=== PATIENT | female | born 1950 | race Caucasian/White ===

== ENCOUNTER → 2020-11-20 | Outpatient (CLI) | payer MEDICARE ==
[~2020-11-20] MED LIST: MULT-449 PO; OMNIPAQUE 350 MG/ML, 75ML BOTTLE ONE
== END | disposition home or self-care (01) ==
LOC: RAD 15:35
PROVIDERS: ATTEND Obstetrics & Gynecology
DX: R91.1 Solitary pulmonary nodule (principal); K76.89 Other specified diseases of liver; R19.09 Other intra-abdominal and pelvic swelling, mass and lump; R93.89 Abnormal findings on diagnostic imaging of other specified body structures
CPT/HCPCS: 71260; Q9967